=== PATIENT | female | born 1965 | race Caucasian/White ===

== ENCOUNTER → 2016-10-11 | Outpatient (CLI) | payer OTHER | LOC: CIMAGING 12:00 | PROVIDERS: ATTEND Internal Medicine | DX: R06.00 Dyspnea, unspecified (principal); Q67.6 Pectus excavatum | CPT/HCPCS: 71020-PO ==

== ENCOUNTER 2016-10-12 17:14 | Observation (INO) | payer OTHER ==
--- NOTE | 2016-10-12 17:23 | EDPHY ---
H & P Time Seen by Provider: 10/12/16 17:18 HPI/ROS: CHIEF COMPLAINT: Chest tightness HISTORY OF PRESENT ILLNESS: 51-year-old woman presents with worsening chest tightness over the last 3 weeks. She had a chest cold 4 weeks ago which is resolved. Over last 2 weeks she has had increasing frequency and severity of tightness in her chest and back which feels heavy. It does not radiate. It is associated with shortness of breath and being worse lying flat. Today she feels out of breath even going up 1 flight of stairs. Symptoms do not change with deep inspiration. No leg swelling. Currently she feels a little bit lightheaded and shaky but no actual syncope. REVIEW OF SYSTEMS: Eye: no change in vision ENT: no sore throat Cardiac: HPI Pulmonary: Currently no cough, no hemoptysis Abdomen: no vomiting, diarrhea, abdominal pain Musculoskeletal: no back pain or leg swelling Skin: no rash Neuro: mild migraine headache, no weak/numb in extremities. Constitutional: no fever : no urinary symptoms A comprehensive 10 point review of systems is otherwise negative aside from elements mentioned in the history of present illness. PAST MEDICAL HISTORY: Migraine headaches, negative for diabetes hypertension or hypercholesterolemia Social history: Negative for tobacco or cocaine, no recent travel or immobilization General Appearance: Alert and conversant, cooperative. Eyes: No scleral icterus. ENT, Mouth: Normal mucous membranes. Respiratory: Normal respiratory effort, breath sounds equal, lungs are clear to auscultation. Cardiovascular: Regular rate and rhythm. Gastrointestinal: Abdomen is soft and non tender. Neurological: Alert and oriented x3. Normally conversant. Face symmetric, normal movement and sensation in all extremities. Skin: Warm and dry, no rashes. Musculoskeletal: No peripheral edema and no joint swelling. No calf tenderness. Psychiatric: Not agitated. Emergency Department course/MDM: Lab reviewed from yesterday 10/11/2016, D-dimer 0.35 at 4:42 p.m. chest x-ray performed at 12:16 p.m. was read as negative. However with worsening chest tightness and increasing dyspnea on exertion concern exists for acute coronary syndrome or cardiomyopathy. Plan to check troponin here and BNP, plan to transfer to [facility] for cardiac risk stratification and probable echocardiography. Reason for transfer, inpatient cardiac evaluation not available here at [facility] discussed with the patient and consented. 1845: Patient had chest pain with rapid narrow complex tachycardia to 150-160 on monitor, which resolved prior to EKG being performed. Possibly SVT. Can't tell for sure whether not it was atrial fibrillation or flutter. Plan for ALS transport at this time to [facility]. 1899: Troponin negative. Constitutional: Initial Vital Signs Temperature (C) 36.6 C 10/12/16 17:21 Heart Rate 94 10/12/16 17:21 Respiratory Rate 18 10/12/16 17:21 Blood Pressure 173/156 H 10/12/16 17:21 O2 Sat (%) 97 10/12/16 17:21 O2 Delivery Mode Room Air Allergies/Adverse Reactions: No Known Allergies Allergy (Unverified 10/12/16 17:21) Home Medications: Medication Instructions Recorded Synthroid 10/12/16 Medical Decision Making - Diagnostics EKG Interpretation: 12-lead EKG interpreted by me; official reading is in trace master. My interpretation is sinus rhythm late anterior RS transition, no acute ischemic changes. 2nd EK-lead EKG interpreted by me; official reading is in trace master. My interpretation is sinus rhythm, tachycardic, no ischemic changes. Differential Diagnosis: Differential diagnosis considered for chest pain including but not limited to myocardial ischemia, aortic dissection, pericarditis, pulmonary embolus, chest wall pain, pleural inflammation and pulmonary infectious causes. Consult/Admit Bed Type: [place] [id number] - Data Points Laboratory Results: Laboratory Results 10/12/16 17:45 10/12/16 17:45 10/12/16 10/12/16 17:45 17:45 WBC 7.28 10^3/uL 10^3/uL (3.80-9.50) RBC 4.75 10^6/uL 10^6/uL (4.18-5.33) Hgb 14.7 g/dL g/dL (12.6-16.3) Hct 43.0 % % (38.0-47.0) MCV 90.5 fL fL (81.5-99.8) MCH 30.9 pg pg (27.9-34.1) MCHC 34.2 g/dL g/dL (32.4-36.7) RDW 12.5 % % (11.5-15.2) Plt Count 313 10^3/uL 10^3/uL (150-400) MPV 8.7 fL fL (8.7-11.7) Neut % (Auto) 59.5 % % (39.3-74.2) Lymph % (Auto) 33.4 % % (15.0-45.0) [place] % (Auto) 6.0 % % (4.5-13.0) Eos % (Auto) 0.7 % % (0.6-7.6) Baso % (Auto) 0.3 % % (0.3-1.7) Nucleat RBC Rel Count 0.0 % % (0.0-0.2) Absolute Neuts (auto) 4.33 10^3/uL 10^3/uL (1.70-6.50) Absolute Lymphs (auto) 2.43 10^3/uL 10^3/uL (1.00-3.00) Absolute Monos (auto) 0.44 10^3/uL 10^3/uL (0.30-0.80) Absolute Eos (auto) 0.05 10^3/uL 10^3/uL (0.03-0.40) Absolute Basos (auto) 0.02 10^3/uL 10^3/uL (0.02-0.10) Absolute Nucleated RBC 0.00 10^3/uL 10^3/uL (0-0.01) Immature Gran % 0.1 % % (0.0-1.1) Immature Gran # 0.01 10^3/uL 10^3/uL (0.00-0.10) Sodium TNP Potassium TNP Chloride TNP Carbon Dioxide TNP Anion Gap TNP BUN TNP Creatinine TNP Estimated GFR TNP Glucose TNP Calcium TNP Troponin I REJ NT-Pro-B Natriuret Pep TNP Medications Given: Discontinued Medications Aspirin (Aspirin) 325 mg PO EDNOW ONE Stop: 10/12/16 17:56 Last Admin: 10/12/16 17:56 Dose: 325 mg Departure - Departure Disposition: [facility] Acute Clinical Impression: Narrow complex tachycardia Chest pain Qualifiers: Chest pain type: unspecified Qualified Code(s): R07.9 - Chest pain, unspecified Condition: Good
--- NOTE | 2016-10-12 17:25 | CPEKG ---
Heart Rate: 84 RR Interval: 714 P-R Interval: 152 QRSD Interval: 78 QT Interval: 356 QTC Interval: 421 P [place]: 30 QRS [place]: 38 T Wave [place]: 22 EKG Severity - BORDERLINE ECG - EKG Impression: SINUS RHYTHM EKG Impression: BORDERLINE R WAVE PROGRESSION, ANTERIOR LEADS Electronically Signed By: Siddharth Araujo 12-Oct-2016 17:43:54
[2016-10-12] MEDS ORDERED: ASPIRIN EC 325 MG TAB PO ONE (17:49)
[2016-10-12 17:54] LABS: % IMMATURE GRANULYOCYTES 0.1 % (0.0-1.1); ABSOLUTE IMMATURE GRANULOCYTES 0.01 10^3/uL (0.00-0.10); ADD DIFF? NO; ADD MORPH? NO; ADD SCAN? NO; ATYPICAL LYMPHOCYTE FLAG 0 (0-99); FRAGMENT RBC FLAG 0 (0-99); HEMOGLOBIN 14.7 g/dL (12.6-16.3); LEFT SHIFT FLG 0 (0-99); LIPEMIA HEMOLYSIS FLAG 90 (0-99); MEAN CELL HEMOGLOBIN 30.9 pg (27.9-34.1); MEAN CELL HEMOGLOBIN CONCENTR. 34.2 g/dL (32.4-36.7); MEAN CELL VOLUME 90.5 fL (81.5-99.8); MEAN PLATELET VOLUME 8.7 fL (8.7-11.7); PLATELET CLUMPS FLAG 50 (0-99); PLATELET COUNT 313 10^3/uL (150-400); RED BLOOD CELL COUNT 4.75 10^6/uL (4.18-5.33); RED CELL DISTRIBUTION WIDTH 12.5 % (11.5-15.2)
[2016-10-12] MEDS ORDERED: ASPIRIN 325 MG TAB PO ONE (17:55)
[2016-10-12 18:37] LABS: ANION GAP 13 mEq/L (8-16); CALCIUM 8.9 mg/dL (8.5-10.4); CARBON DIOXIDE 22 mEq/l (22-31); CHLORIDE 104 mEq/L (97-110); CREATININE 0.6 mg/dL (0.6-1.0); GLOMERULAR FILTRATION RATE > 60; GLUCOSE 95 mg/dL (70-100); POTASSIUM 3.8 mEq/L (3.5-5.2); SODIUM 139 mEq/L (134-144)
--- NOTE | 2016-10-12 18:50 | CPEKG ---
Heart Rate: 100 RR Interval: 600 P-R Interval: 156 QRSD Interval: 80 QT Interval: 336 QTC Interval: 434 P [place]: 53 QRS [place]: 53 T Wave [place]: 9 EKG Severity - BORDERLINE ECG - EKG Impression: SINUS TACHYCARDIA EKG Impression: BORDERLINE R WAVE PROGRESSION, ANTERIOR LEADS EKG Impression: BORDERLINE T ABNORMALITIES, ANTERIOR LEADS Electronically Signed By: Siddharth Araujo 12-Oct-2016 18:53:19
[2016-10-12 18:57] LABS: TROPONIN I < 0.012 ng/mL (0-0.034)
[2016-10-12] MEDS ORDERED: ONDANSETRON 4 MG/2 ML VIAL ONE (21:49)
[2016-10-12] MEDS ORDERED: ONDANSETRON 4 MG/2 ML VIAL IVP PRN (21:50)
[2016-10-12] MEDS: NITROGLYCERIN 0.4 MG BTL SL PRN ×2 (21:54→22:10)
--- NOTE | 2016-10-12 22:10 | CPEKG ---
Heart Rate: 77 RR Interval: 779 P-R Interval: 160 QRSD Interval: 80 QT Interval: 392 QTC Interval: 444 P [place]: 45 QRS [place]: 47 T Wave [place]: 27 EKG Severity - BORDERLINE ECG - EKG Impression: SINUS RHYTHM EKG Impression: BORDERLINE R WAVE PROGRESSION, ANTERIOR LEADS Electronically Signed By: Siddharth Araujo 12-Oct-2016 22:34:41
[2016-10-12] MEDS ORDERED: KETOROLAC 30 MG/1 ML SDV IVP ONE (22:27)
[2016-10-12] MEDS ORDERED: oxyCODONE IR 5 MG TAB PO PRN (22:31)
[2016-10-12] MEDS ORDERED: ACETAMINOPHEN 500 MG TAB PO PRN (22:31)
[2016-10-12] MEDS ORDERED: ALBUTEROL 3 ML DEYVIAL IH PRN (22:31)
--- NOTE | 2016-10-12 22:36 | PDGENHP ---
History and Physical - Chief Complaint chest pain - History of Present Illness patient is a 51-year-old female with history of hypothyroidism (due to previous thyroidectomy) who presented to the [facility] with complaint chest pain/tightness. Patient reports about 4 weeks ago she suffered from what she felt to be a viral upper respiratory infection, with nasal congestion, sneezing, cough and some subjective fevers. As her acute cold symptoms improved over week, she noticed that she was developing a tightness across her chest. by about 2 weeks ago, her cold symptoms had completely resolved but her chest tightness persisted. She describes it as pain when attempting to take a deep breath, resulting in sensation of dyspnea. She denies any associated palpitations, nausea or diaphoresis. She was evaluated by her PMD on 10/11, at which time blood work, chest x-ray and EKG were obtained. She was told all of the studies were unremarkable, was prescribed an albuterol inhaler for p.r.n. use. Today, her symptoms continued to progress and she felt dyspnea with minimal exertion, so she decided to go to the [facility] for further evaluation. On arrival to the [facility], patient was afebrile hemodynamically stable. She did have an episode of transient narrow complex tachycardia while being evaluated in the [facility] (HR to 150 range, resolved spontaneously have 2-3 minutes). Initial labs, including CBC, BMP and troponin, were unremarkable. D-dimer was also negative. EKG did not reveal any obvious ischemic changes and chest x-ray ( from 10/11 PMD visit) was also noted to be unremarkable. She was given a full dose aspirin and transferred to [facility] for admission. History Information - Allergies/Home Medication List Allergies/Adverse Reactions: No Known Allergies Allergy (Unverified 10/12/16 17:21) Home Medications: ELETRIPTAN HYDROBROMIDE [RELPAX] 40 mg PO DAILY PRN 10/12/16 [Last Taken Unknown ] Thyroid,Pork [Nature-Throid] 113.75 mg PO DAILY 10/12/16 [Last Taken 10/12/16] I have personally reviewed and updated: family history, medical history, social history, surgical history - Past Medical History Additional medical history: hypothyroidism due to thyroid resection - Surgical History Additional surgical history: thyroidectomy. hysterectomy - Family History Additional family history: HTN in both parents - Social History Smoking Status: Never smoked Alcohol Use: Occasionally Drug Use: None Additional social history: Patient lives with , does not work, is independent in ADLs Review of Systems ROS: 10pt was reviewed & negative except for what was stated in HPI & below Physical Exam Temp Pulse Resp BP Pulse Ox 37.0 C 77 16 164/96 H 98 10/12/16 20:45 10/12/16 20:45 10/12/16 20:45 10/12/16 20:45 10/12/16 20:45 O2 (L/minute) 2 Constitutional: no apparent distress, appears nourished, not in pain Eyes: PERRL, anicteric sclera, EOMI Ears, Nose, Mouth, Throat: moist mucous membranes, hearing normal, ears appear normal, no oral mucosal ulcers Cardiovascular: regular rate and rhythym, no murmur, rub, or gallop, pulses symmetric bilaterally, No JVD, No edema Peripheral Pulses: 2+: dorsalis-pedis (R), dorsalis-pedis (L) Respiratory: no respiratory distress, no rales or rhonchi, clear to auscultation Gastrointestinal: normoactive bowel sounds, soft, non-tender abdomen, no palpable masses, No guarding, No rebound Genitourinary: no bladder fullness, no bladder tenderness Skin: warm, normal color, no rashes or abrasions, no fluctuance, no induration, No mottled Musculoskeletal: full muscle strength, no muscle tenderness, normal joint ROM, no joint effusions Neurologic: AAOx3, sensation intact bilaterally, CN II-XII Intact, No weakness, No numbness, No facial droop Psychiatric: interacting appropriately, not anxious, not encephalopathic, thought process linear Lab Data & Imaging Review 10/12/16 17:45 10/12/16 18:21 WBC 7.28 10^3/uL (3.80-9.50) 10/12/16 17:45 RBC 4.75 10^6/uL (4.18-5.33) 10/12/16 17:45 Hgb 14.7 g/dL (12.6-16.3) 10/12/16 17:45 Hct 43.0 % (38.0-47.0) 10/12/16 17:45 MCV 90.5 fL (81.5-99.8) 10/12/16 17:45 MCH 30.9 pg (27.9-34.1) 10/12/16 17:45 MCHC 34.2 g/dL (32.4-36.7) 10/12/16 17:45 RDW 12.5 % (11.5-15.2) 10/12/16 17:45 Plt Count 313 10^3/uL (150-400) 10/12/16 17:45 MPV 8.7 fL (8.7-11.7) 10/12/16 17:45 Neut % (Auto) 59.5 % (39.3-74.2) 10/12/16 17:45 Lymph % (Auto) 33.4 % (15.0-45.0) 10/12/16 17:45 [place] % (Auto) 6.0 % (4.5-13.0) 10/12/16 17:45 Eos % (Auto) 0.7 % (0.6-7.6) 10/12/16 17:45 Baso % (Auto) 0.3 % (0.3-1.7) 10/12/16 17:45 Nucleat RBC Rel Count 0.0 % (0.0-0.2) 10/12/16 17:45 Absolute Neuts (auto) 4.33 10^3/uL (1.70-6.50) 10/12/16 17:45 Absolute Lymphs (auto) 2.43 10^3/uL (1.00-3.00) 10/12/16 17:45 Absolute Monos (auto) 0.44 10^3/uL (0.30-0.80) 10/12/16 17:45 Absolute Eos (auto) 0.05 10^3/uL (0.03-0.40) 10/12/16 17:45 Absolute Basos (auto) 0.02 10^3/uL (0.02-0.10) 10/12/16 17:45 Absolute Nucleated RBC 0.00 10^3/uL (0-0.01) 10/12/16 17:45 Immature Gran % 0.1 % (0.0-1.1) 10/12/16 17:45 Immature Gran # 0.01 10^3/uL (0.00-0.10) 10/12/16 17:45 D-Dimer 0.34 ug/mLFEU (0.00-0.50) 10/12/16 21:25 Sodium 139 mEq/L (134-144) 10/12/16 18:21 Potassium 3.8 mEq/L (3.5-5.2) 10/12/16 18:21 Chloride 104 mEq/L (97-110) 10/12/16 18:21 Carbon Dioxide 22 mEq/l (22-31) 10/12/16 18:21 Anion Gap 13 mEq/L (8-16) 10/12/16 18:21 BUN 10 mg/dL (7-23) 10/12/16 18:21 Creatinine 0.6 mg/dL (0.6-1.0) 10/12/16 18:21 Estimated GFR > 60 10/12/16 18:21 Glucose 95 mg/dL (70-100) 10/12/16 18:21 Calcium 8.9 mg/dL (8.5-10.4) 10/12/16 18:21 Troponin I < 0.012 ng/mL (0-0.034) 10/12/16 21:25 NT-Pro-B Natriuret Pep 41 pg/mL (0-125) 10/12/16 18:21 TSH 0.062 uIU/mL (0.465-4.680) L 10/12/16 18:20 Visualized and Interpreted Chest x-ray results: Yes Chest X-Ray results: no infiltrate (from 10/11/2016), normal Visualized and Interpreted EKG results: Yes EKG Interpretation: Positive for: normal sinsus rhythm (no obvious st/t wave changes; poor R wave progression) Assessment & Plan Assessment: Patient is a 51 year old female with hypothyroidism who presents to the ED with complaint of pleuritic chest tightness, associated with dyspnea. [facility] evaluation was significant for a brief episode of tachycardia associated with her symptoms, but initial EKG and labs were largely unremarkable. Plan: # chest tightness Patient's description of her symptoms sound consistent with a pleuritic-type chest pain; pleurisy vs pericarditis. History of preceding viral syndrome further supports this. EKG does not show any evidence of ischemia or pericarditis and initial troponin is negative. There is also a report of a transient SVT while in [facility]. There has not been any recurrence of this since arrival to [facility], but arrhythmia may also be contributing to her symptoms. D- dimer is negative, so PE is unlikely. - give trial of Toradol, if improvement in symptoms, continue q6h prn - monitor serial EKGs, troponins - check TTE, consider NM stress if above w/u is negative # history of hypothyroidism, low TSH Patient on thyroid replacement therapy due to previous total thyroidectomy. TSH was checked in [facility] and is noted to be low; iatrogenic hyperthyroid state may be contributing to her above symptoms. Consider lowering thyroid replacement therapy and will check free T3/T4. # dispo: admit to observation for chest pain evaluation #gen: NPO DVT ppx: low risk, if inpatient > 2 nights start lovenox Full code
[2016-10-13 05:11] LABS: APTT 27.9 SEC (23.0-38.0); INR 1.03 (0.83-1.16); PROTIME(PATIENT) 13.4 SEC (12.0-15.0)
[2016-10-13 05:12] LABS: % IMMATURE GRANULYOCYTES 0.2 % (0.0-1.1); ABSOLUTE IMMATURE GRANULOCYTES 0.01 10^3/uL (0.00-0.10); ADD DIFF? NO; ADD MORPH? NO; ADD SCAN? NO; ATYPICAL LYMPHOCYTE FLAG 40 (0-99); FRAGMENT RBC FLAG 0 (0-99); HEMATOCRIT 38.1 % (38.0-47.0); HEMOGLOBIN 12.6 g/dL (12.6-16.3); LEFT SHIFT FLG 0 (0-99); LIPEMIA HEMOLYSIS FLAG 80 (0-99); MEAN CELL HEMOGLOBIN 30.4 pg (27.9-34.1); MEAN CELL HEMOGLOBIN CONCENTR. 33.1 g/dL (32.4-36.7); MEAN PLATELET VOLUME 8.6 fL (8.7-11.7); PLATELET CLUMPS FLAG 0 (0-99); PLATELET COUNT 255 10^3/uL (150-400); RED BLOOD CELL COUNT 4.14 10^6/uL (4.18-5.33); RED CELL DISTRIBUTION WIDTH 12.5 % (11.5-15.2)
[2016-10-13 05:21] LABS: ANION GAP 5 mEq/L (8-16); CALCIUM 8.8 mg/dL (8.5-10.4); CARBON DIOXIDE 23 mEq/l (22-31); CHLORIDE 111 mEq/L (97-110); CREATININE 0.6 mg/dL (0.6-1.0); GLOMERULAR FILTRATION RATE > 60; GLUCOSE 91 mg/dL (70-100); POTASSIUM 4.4 mEq/L (3.5-5.2); SODIUM 139 mEq/L (134-144)
[2016-10-13 05:29] LABS: CREATINE KINASE-MB FRACTION 0.26 ng/mL (0-3.19); TROPONIN I < 0.012 ng/mL (0-0.034)
[2016-10-13] MEDS: KETOROLAC 15 MG/1 ML SDV IVP SCH ×2 (07:15→13:14)
[2016-10-13] MEDS ORDERED: METOPROLOL TARTRATE 5 MG/5 ML INJ IVP ONE (10:15)
--- NOTE | 2016-10-13 13:06 | ECHO ---
[id number] + + [address] : : [place] [address] : : [phone] + + Adult Echocardiographic Report + ------+ :Name: JANIS GARCIA KStudy Date: 10/13/2016 11:40 AM : : Hospital Admission Number: [id number] Locatio n: 220: :: 1965 Gender: Female Height: 64 in : :Age: 51 yrs Race: WH Weight: 163 lb : :Reason For Study: Pleuritic type chest pain : : BSA: 1.8 meters 2 : + ------+ MMode/2D Measurements \T\ Calculations IVSd: 1.0 cm LVIDd: 3.9 cm FS: 35.2 % Ao root diam: LVPWd: 0.85 cm LVIDs: 2.5 cm EDV(Teich): 3.4 cm 65.4 ml LA dimension: ESV(Teich): 3.4 cm 22.8 ml EF(Teich): 65.2 % LVLd ap4: 8.7 cm SV(MOD-sp4): EDV(MOD-sp4): 48.0 ml 66.0 ml LVLs ap4: 6.6 cm ESV(MOD-sp4): 18.0 ml EF(MOD-sp4): 72.7 % Normal Measurement Values: + + :LVIDd (3.5-5.7cm) IVSd (0.6-1.1cm) LVPWd (0.6-1.1cm) Aortic Root (2.0-3.7cm)Left Atrium (1.5-4.0cm): :LV Vol(d) (76-115ml) LV Vol(s) (29-48ml) Ejec Fraction (50-65%)PV Ry (0.6- 1.2m/s) TV Ry (0.4-1.0m/s) : :MV E Ry (0.8-1.0m/s)MV A Ry (0.3-1.0m/s)LVOT Ry (0.7-1.2m/s) Asc Ao Ry ( 0.9-1.8m/s) : + + Doppler Measurements \T\ Calculations MV E max yr: 79.5 cm/sec Ao V2 max: 139.8 cm/sec MV A max ry: 69.1 cm/sec Ao max P.8 mmHg MV E/A: 1.1 Left Ventricle The left ventricle is normal in size and function. There is normal left ventricular wall thickness. Left ventricular systolic function is normal. Ejection Fraction = 60-65%. No regional wall motion abnormalities noted. Right Ventricle The right ventricle is normal in size and function. Atria The left atrial size is normal. Right atrial size is normal. Mitral Valve The mitral valve is normal in structure and function. There is no evidence of mitral valve prolapse. There is no mitral valve stenosis. There is trace mitral regurgitation. Tricuspid Valve Normal tricuspid valve. Aortic Valve The aortic valve is trileaflet. The aortic valve opens well. There is no aortic stenosis. There is no aortic insufficiency. Pulmonic Valve The pulmonic valve is normal in structure and function. trace to mild pulmonic valvular regurgitation. Great Vessels The aortic root is normal size. Pericardium/Pleural There is no pericardial effusion. Conclusion A complete two-dimensional transthoracic echocardiogram was performed (2D, M-mode, Doppler and color flow Doppler). 1. The left ventricle is normal in size and function. The Ejection Fraction = 60-65%. 2. The mitral valve is normal in structure and function. There is trace mitral regurgitation. 3. The aortic valve is trileaflet. There is no aortic stenosis. There is no aortic insufficiency. 4. The pulmonary artery pressure could not be adequately estimated. 5. No old studies for comparison. Final Reading Physician: Eb Garza MD electronically signed on 10/13/2016 01:05 PM Ordering Physician: Britta Ahuja Performed By: Kavya Rayo, [facility]
[2016-10-13 13:14] VITALS: RESP 16
[2016-10-13] MEDS ORDERED: IOPAMIDOL (ISOVUE 370) 100 ML BTL IV ONE (14:49)
[2016-10-13] MEDS ORDERED: KETOROLAC 15 MG/1 ML SDV IVP ONE (15:53)
[2016-10-13 16:22] VITALS: BP 152/94; PULSE 71; TEMP 98.2; O2SAT 95
--- NOTE | 2016-10-13 18:35 | PDDCSUM ---
Discharge Summary Discharge Summary: DISCHARGE DIAGNOSES: -Chest pain, suspected costochondritis after recent viral respiratory infection -Ruled out for myocardial infarction -Unemarkable Echocardiogram and CT angio Chest PROCEDURES: echocardiogram CT angio of chest HOSPITAL COURSE SUMMARY: This patient presented with 2+ weeks of continuous chest discomfort located in the upper central chest and interscapular area. It waxed and waned somewhat but was alway present. It started with a syndrome typical of viral upper respiratory infection which has otherwise resolved. She ruled out for SD, and CAD is not suspected given the overall nature of the syndrome. Echo and CT angio chest were normal. There is no arrythmia. She was treated with NSAID and had mild improvement in pain overnight. She is felt stable for DC to home. PENDING TEST RESULTS: none MEDICATION CHANGES: additon of advil or naprosyn as needed FOLLOW-UP PLAN: with staff assistant next week Greater than 35 minutes bedside and care coordination time today
== END 2016-10-13 19:45 | disposition home or self-care (01) ==
LOC: CED 17:14 → CEDHOLD 17:50 → F2W 20:37
PROVIDERS: ADMIT Internal Medicine; ATTEND Internal Medicine
DX: R07.9 Chest pain, unspecified (principal); E03.8 Other specified hypothyroidism
CPT/HCPCS: 71275; 93005; 93306; 99285; G0378; 80048-PO; 83880-PO; 84443-PO; 84481-90; 84484-PO; 85025-PO; J1885; J2405; Q9967

== ENCOUNTER 2016-10-16 11:32 | Emergency (ER) | payer OTHER ==
--- NOTE | 2016-10-16 11:57 | CPEKG ---
Heart Rate: 92 RR Interval: 652 P-R Interval: 140 QRSD Interval: 86 QT Interval: 360 QTC Interval: 446 P [place]: 61 QRS [place]: 49 T Wave [place]: 23 EKG Severity - BORDERLINE ECG - EKG Impression: SINUS RHYTHM EKG Impression: BORDERLINE R WAVE PROGRESSION, ANTERIOR LEADS Electronically Signed By: Eb Aldana 20-Oct-2016 12:19:06
[2016-10-16] MEDS ORDERED: HYOSCYAMINE SULFATE 0.125 MG TAB PO ONE (12:44)
[2016-10-16] MEDS ORDERED: LIDOCAINE 2% VISCOUS 15 ML UDCUP PO ONE (12:44)
[2016-10-16] MEDS ORDERED: NS 1,000 ML IV ONE (12:44)
[2016-10-16] MEDS ORDERED: MAG HYDROX/AL HYDROX/SIMETH 30 ML UDCUP PO ONE (12:44)
[2016-10-16] MEDS ORDERED: KETOROLAC 15 MG/1 ML SDV IVP ONE (12:45)
[2016-10-16 12:50] LABS: % IMMATURE GRANULYOCYTES 0.3 % (0.0-1.1); ABSOLUTE IMMATURE GRANULOCYTES 0.02 10^3/uL (0.00-0.10); ADD DIFF? NO; ADD MORPH? NO; ADD SCAN? NO; ATYPICAL LYMPHOCYTE FLAG 20 (0-99); FRAGMENT RBC FLAG 0 (0-99); HEMATOCRIT 44.6 % (38.0-47.0); HEMOGLOBIN 15.5 g/dL (12.6-16.3); LEFT SHIFT FLG 0 (0-99); LIPEMIA HEMOLYSIS FLAG 90 (0-99); MEAN CELL HEMOGLOBIN 30.9 pg (27.9-34.1); MEAN CELL HEMOGLOBIN CONCENTR. 34.8 g/dL (32.4-36.7); MEAN CELL VOLUME 88.8 fL (81.5-99.8); MEAN PLATELET VOLUME 8.5 fL (8.7-11.7); PLATELET CLUMPS FLAG 0 (0-99); PLATELET COUNT 367 10^3/uL (150-400); RED BLOOD CELL COUNT 5.02 10^6/uL (4.18-5.33); RED CELL DISTRIBUTION WIDTH 12.2 % (11.5-15.2)
[2016-10-16 12:56] LABS: ANION GAP 17 mEq/L (8-16); CALCIUM 9.5 mg/dL (8.5-10.4); CARBON DIOXIDE 19 mEq/l (22-31); CHLORIDE 104 mEq/L (97-110); CREATININE 0.6 mg/dL (0.6-1.0); GLOMERULAR FILTRATION RATE > 60; GLUCOSE 96 mg/dL (70-100); POTASSIUM 4.3 mEq/L (3.5-5.2); SODIUM 140 mEq/L (134-144)
[2016-10-16] MEDS ORDERED: DEXAMETHASONE 10 MG/ML VIAL IVP ONE (12:59)
[2016-10-16 13:17] LABS: TROPONIN I < 0.012 ng/mL (0-0.034)
[2016-10-16 13:33] LABS: COLOR YELLOW; LEUKOCYTE ESTERASE,URINE NEGATIVE (NEGATIVE); NITRITE,URINE NEGATIVE (NEGATIVE)
[2016-10-16] MEDS ORDERED: LORazepam 2 MG/ML INJ IVP ONE (13:44)
[2016-10-16] MEDS ORDERED: NITROGLYCERIN 2% 1 GM PACKET TP ONE (13:44)
[2016-10-16] MEDS ORDERED: HYDROmorphONE/DILAUDID 1 MG/ML SYR IVP ONE (13:44)
[2016-10-16 13:49] LABS: BACTERIA 1+ /hpf (NONE SEEN); MUCUS 1+ /lpf (NONE-1+); YEAST OCCASIONAL /hpf (NONE SEEN)
[2016-10-16 13:50] LABS: WBC,URINE 0-1 /hpf (0-3)
[2016-10-16 14:00] LABS: ALBUMIN 4.2 g/dL (3.5-5.0); BILIRUBIN,TOTAL 0.7 mg/dL (0.1-1.4); BILIRUBIN-CONJUGATED 0.4 mg/dL (0.0-0.5); BILIRUBIN-UNCONJUGATED 0.3 mg/dL (0.0-1.1); TOTAL PROTEIN 8.1 g/dL (6.3-8.2)
--- NOTE | 2016-10-16 14:15 | EDPHY ---
H & P Stated Complaint: cp "feels like my body is going to explode". Time Seen by Provider: 10/16/16 11:44 HPI/ROS: CHIEF COMPLAINT: Pounding in my chest HISTORY OF PRESENT ILLNESS: This is a 51-year-old female who was admitted to the hospital on October 12 for chest pain. Patient's evaluation included serial troponins which were negative, EKGs remained nonischemic, echocardiogram demonstrated no pericardial effusion and a CT scan of the chest demonstrated no pulmonary embolism. At that time the patient related a history of viral syndrome with fever several weeks previously and the patient's symptom complex was most likely thought to be related to pleurisy versus pericarditis. Patient was discharged with instructions regarding regular doses of nonsteroidals. Her states she has been taking Aleve 220 mg 2 times a day with minimal improvement. Patient reports that she has been unable to care for her family, laying in bed, with chest discomfort described as an achy pain and feeling like her heart is pounding. She also reports ringing in her ears. She has developed some nausea which may be related to the Aleve. Last night she reports being unable to sleep secondary to the pounding sensation. Patient has had no fainting, or dizziness. On arrival to the emergency department the patient is quite upset, crying, noted to be hypertensive, noted to be hyperventilating and tachycardic. She reports her pain is 10/10. She intermittently complains of sharp stabbing low back pain, and intermittently relates pain in the inner aspect of her right arm as well as urinary discomfort. REVIEW OF SYSTEMS: Aside from elements discussed in the HPI, a comprehensive 10-point review of systems was reviewed and is negative. PAST MEDICAL HISTORY: Hypothyroidism. Patient takes a natural thyroid. SOCIAL HISTORY: . Nonsmoker. VITAL SIGNS Reviewed by me. GENERAL: Well-developed, well-nourished, crying, anxious, agitated, lying with her eyes closed. HEENT: Atraumatic. Eyes: No icterus, no injection. Mouth: moist mucous membranes. No erythema or lesions. Neck: supple with no adenopathy. LUNGS: Clear to auscultation bilaterally, no wheezes, rhonchi or rales. CARDIAC: Tachycardic rate. No rubs murmurs or gallops. ABDOMEN: Soft, nontender, nondistended, bowel sounds normal. BACK: No CVA tenderness. EXTREMITIES: No trauma. No edema. Range of motion is normal throughout. NEURO: Alert and oriented, grossly nonfocal. SKIN: Warm and dry, no rash. PSYCHIATRIC: Normal mentation, very upset. - Personal History LMP (Females 10-55): Unknown Current Tetanus/Diphtheria Vaccine: Yes Current Tetanus Diphtheria and Acellular Pertussis (TDAP): Yes - Medical/Surgical History Hx Asthma: No Hx Chronic Respiratory Disease: No Hx Diabetes: No Hx Cardiac Disease: No Hx Renal Disease: No Hx Cirrhosis: No Hx Alcoholism: No Hx HIV/AIDS: No Hx Splenectomy or Spleen Trauma: No Other PMH: thyroid/hyst, migraine headache - Social History Smoking Status: Never smoked Constitutional: Initial Vital Signs Temperature (C) 36.5 C 10/16/16 11:35 Heart Rate 110 H 10/16/16 11:35 Respiratory Rate 20 10/16/16 11:35 Blood Pressure 168/121 H 10/16/16 11:35 O2 Sat (%) 100 10/16/16 11:35 O2 Delivery Mode Room Air Allergies/Adverse Reactions: No Known Allergies Allergy (Verified 10/16/16 11:54) Home Medications: Medication Instructions Recorded ELETRIPTAN HYDROBROMIDE [RELPAX] 40 mg PO DAILY PRN 10/12/16 Thyroid,Pork [Nature-Throid] 113.75 mg PO DAILY 10/12/16 Naproxen Sodium [Aleve 220 MG (*)] 220 mg PO BID #1 tab 10/13/16 LORazepam [Ativan (*)] 0.5 - 1 mg PO HS PRN #10 tab 10/16/16 Metoprolol Tartrate [Lopressor 25 12.5 mg PO BID #30 tab 10/16/16 mg (*)] Medical Decision Making - Diagnostics EKG Interpretation: 12-LEAD EKG: Please see the full report in [facility]. My interpretation: Sinus rhythm, no ST elevations Imaging Results: Imaging Impressions Chest X-Ray 10/16/16 12:45 Impression: No acute findings in the chest. Imaging: I viewed and interpreted images myself ED Course/Re-evaluation: 51-year-old female presenting to the emergency department with ongoing chest pain since a evaluation and inpatient stay at the hospital several days ago. She reports that she continues to have an achy sensation and feels like her chest is going to explode. History was initially somewhat difficult this patient is quite upset, anxious, hyperventilating, and reporting multiple concerns stating "I just did not think my body could take it anymore" review into the pounding sensation in her chest. Patient's EKG remains nonischemic and I see no signs of pericarditis. Chest x- ray is normal with no signs of heart failure or pleural effusions. Troponin remains negative. BNP is normal. Your patient received Toradol IV as well as Decadron 10 mg IV. Bedside ultrasound was attempted to be performed, however, due to machine malfunction I am unable to evaluate the patient for pericardial effusion. Heart sounds are not muffled and the patient has no secondary signs of pericardial tamponade. Patient was re-evaluated on several occasions. She continues to be somewhat vague regarding her primary complaint. At 1 point she reports low back pain and feels like she has urinary tract infection. Of note, the patinet has remained hypertensive throughout her evaluation. She did receive Ativan, a small dose of Dilaudid, and nitropaste. Blood pressure responded the patient was much more comfortable. I had several long discussions with the patient and her . I explained the presumed cause of her achy chest discomfort as a musculoskeletal chest pain. We discussed that pounding sensation. We discussed normal EKGs and negative troponins. I offered them admission to the hospital. We discussed initiation of antihypertensive therapy. I do not believe the patient is suffering an acute myocardial infarction, I doubt coronary artery disease, pulmonary embolism pericardial effusion, pleural effusions. I doubt dissection in the face of a normal CT scan performed several days ago and no pre-existing history of hypertension. Patient and her feel comfortable being discharged on metoprolol to use for her elevated blood pressure which may also help control the anxiety and the pounding sensation. Patient was also given a prescription for Ativan to use if needed for insomnia. The understand reasons to return to the emergency department. They were given referral to Dr. Garza and they also state they will follow up with Dr. Howell. Differential Diagnosis: Differential diagnoses for the patient's symptom complex was considered including but not limited to anxiety, pleuritic chest pain, pericarditis, pleuritis, pleurisy, anxiety, thoracic aortic dissection, pulmonary embolism. - Data Points Laboratory Results: Laboratory Results 10/16/16 12:15 10/16/16 12:15 10/16/16 10/16/16 10/16/16 13:25 12:45 12:15 WBC RBC Hgb Hct MCV MCH MCHC RDW Plt Count MPV Neut % (Auto) Lymph % (Auto) Hall % (Auto) Eos % (Auto) Baso % (Auto) Nucleat RBC Rel Count Absolute Neuts (auto) Absolute Lymphs (auto) Absolute Monos (auto) Absolute Eos (auto) Absolute Basos (auto) Absolute Nucleated RBC Immature Gran % Immature Gran # Sodium Potassium Chloride Carbon Dioxide Anion Gap BUN Creatinine Estimated GFR Glucose Calcium Total Bilirubin 0.7 mg/dL mg/dL (0.1-1.4) Conjugated Bilirubin 0.4 mg/dL mg/dL (0.0-0.5) Unconjugated Bilirubin 0.3 mg/dL mg/dL (0.0-1.1) AST 28 IU/L IU/L (14-46) ALT 37 IU/L IU/L (9-52) Alkaline Phosphatase 111 IU/L IU/L (38-126) Troponin I NT-Pro-B Natriuret Pep Total Protein 8.1 g/dL g/dL (6.3-8.2) Albumin 4.2 g/dL g/dL (3.5-5.0) Lipase TSH 0.733 uIU/mL uIU/mL (0.465-4.680) Urine Color YELLOW Urine Appearance CLEAR Urine pH 7.0 (5.0-7.5) Ur Specific [place] <= 1.005 (1.002-1.030) Urine Protein NEGATIVE (NEGATIVE) Urine Ketones NEGATIVE (NEGATIVE) Urine Blood NEGATIVE (NEGATIVE) Urine Nitrate NEGATIVE (NEGATIVE) Urine Bilirubin NEGATIVE (NEGATIVE) Urine Urobilinogen 0.2 EU EU (0.2-1.0) Ur Leukocyte Esterase NEGATIVE (NEGATIVE) Urine RBC 1-3 /hpf /hpf (0-3) Urine WBC 0-1 /hpf /hpf (0-3) Ur Epithelial Cells 2+ /lpf H /lpf (NONE-1+) Urine Bacteria 1+ /hpf H /hpf (NONE SEEN) Urine Mucus 1+ /lpf /lpf (NONE-1+) Urine Yeast OCCASIONAL /hpf H /hpf (NONE SEEN) Urine Glucose NEGATIVE (NEGATIVE) 10/16/16 10/16/16 12:15 12:15 WBC 5.81 10^3/uL 10^3/uL (3.80-9.50) RBC 5.02 10^6/uL 10^6/uL (4.18-5.33) Hgb 15.5 g/dL g/dL (12.6-16.3) Hct 44.6 % % (38.0-47.0) MCV 88.8 fL fL (81.5-99.8) MCH 30.9 pg pg (27.9-34.1) MCHC 34.8 g/dL g/dL (32.4-36.7) RDW 12.2 % % (11.5-15.2) Plt Count 367 10^3/uL 10^3/uL (150-400) MPV 8.5 fL L fL (8.7-11.7) Neut % (Auto) 57.6 % % (39.3-74.2) Lymph % (Auto) 35.3 % % (15.0-45.0) Hall % (Auto) 5.9 % % (4.5-13.0) Eos % (Auto) 0.7 % % (0.6-7.6) Baso % (Auto) 0.2 % L % (0.3-1.7) Nucleat RBC Rel Count 0.0 % % (0.0-0.2) Absolute Neuts (auto) 3.35 10^3/uL 10^3/uL (1.70-6.50) Absolute Lymphs (auto) 2.05 10^3/uL 10^3/uL (1.00-3.00) Absolute Monos (auto) 0.34 10^3/uL 10^3/uL (0.30-0.80) Absolute Eos (auto) 0.04 10^3/uL 10^3/uL (0.03-0.40) Absolute Basos (auto) 0.01 10^3/uL L 10^3/uL (0.02-0.10) Absolute Nucleated RBC 0.00 10^3/uL 10^3/uL (0-0.01) Immature Gran % 0.3 % % (0.0-1.1) Immature Gran # 0.02 10^3/uL 10^3/uL (0.00-0.10) Sodium 140 mEq/L mEq/L (134-144) Potassium 4.3 mEq/L mEq/L (3.5-5.2) Chloride 104 mEq/L mEq/L (97-110) Carbon Dioxide 19 mEq/l L mEq/l (22-31) Anion Gap 17 mEq/L H mEq/L (8-16) BUN 9 mg/dL mg/dL (7-23) Creatinine 0.6 mg/dL mg/dL (0.6-1.0) Estimated GFR > 60 Glucose 96 mg/dL mg/dL (70-100) Calcium 9.5 mg/dL mg/dL (8.5-10.4) Total Bilirubin Conjugated Bilirubin Unconjugated Bilirubin AST ALT Alkaline Phosphatase Troponin I < 0.012 ng/mL ng/mL (0-0.034) NT-Pro-B Natriuret Pep 39 pg/mL pg/mL (0-125) Total Protein Albumin Lipase 92.0 IU/L IU/L (23-300) TSH Urine Color Urine Appearance Urine pH Ur Specific [place] Urine Protein Urine Ketones Urine Blood Urine Nitrate Urine Bilirubin Urine Urobilinogen Ur Leukocyte Esterase Urine RBC Urine WBC Ur Epithelial Cells Urine Bacteria Urine Mucus Urine Yeast Urine Glucose Medications Given: Discontinued Medications Al Hydroxide/Mg Hydroxide (Maalox Susp) 30 ml PO ONCE ONE Stop: 10/16/16 12:45 Last Admin: 10/16/16 13:00 Dose: 30 ml Dexamethasone (Decadron Injection) 10 mg IVP EDNOW ONE Stop: 10/16/16 13:00 Last Admin: 10/16/16 13:15 Dose: 10 mg Hydromorphone HCl (Dilaudid) 0.5 mg IVP EDNOW ONE Stop: 10/16/16 13:45 Last Admin: 10/16/16 14:00 Dose: 0.5 mg Hyoscyamine Sulfate (Levsin, Hyomax-Sl) 0.25 mg PO ONCE ONE Stop: 10/16/16 12:45 Last Admin: 10/16/16 12:59 Dose: 0.25 mg Sodium Chloride (Ns) 1,000 mls @ 0 mls/hr IV ONCE ONE PRN Reason: Wide Open Stop: 10/16/16 12:45 Last Admin: 10/16/16 13:00 Dose: 1,000 mls Ketorolac Tromethamine (Toradol) 15 mg IVP EDNOW ONE Stop: 10/16/16 12:46 Last Admin: 10/16/16 13:00 Dose: 15 mg Lidocaine (Lidocaine 2% Viscous) 15 ml PO ONCE ONE Stop: 10/16/16 12:45 Last Admin: 10/16/16 13:00 Dose: 15 ml Lorazepam (Ativan Injection) 1 mg IVP EDNOW ONE Stop: 10/16/16 13:45 Last Admin: 10/16/16 14:00 Dose: 1 mg Nitroglycerin (Nitro-Bid 2%) 1 inch TP EDNOW ONE Stop: 10/16/16 13:45 Last Admin: 10/16/16 14:00 Dose: 1 inch Departure - Departure Disposition: Home, Routine, Self-Care Clinical Impression: Chest pain Qualifiers: Chest pain type: unspecified Qualified Code(s): R07.9 - Chest pain, unspecified Hypertension Qualifiers: Hypertension type: essential hypertension Qualified Code(s): I10 - Essential ( primary) hypertension Condition: Good Instructions: Chest Pain (ED), Pleurisy (ED), Hypertension (ED) Additional Instructions: Please follow up without fail on Monday with your primary care physician, Dr. Howell. You have also been given referral to a marketer, Dr. Garza. I believe it is important to follow up with both services. Please begin taking the metoprolol to help control your high blood pressure and the pounding sensation. Dose is 12.5 mg 2 times a day. He also been given a prescription for Ativan to use if needed for difficulty sleeping or anxiety. Return to the emergency department or seek care urgently if you develop worsening chest pain, lightheadedness, fainting, palpitations, or other concerns. Continue to take Aleve as directed 2 times a day. Referrals: Bi Howell MD [Primary Care Provider] - As per Instructions Eb Garza MD [Medical Doctor] - As per Instructions Prescriptions: LORazepam [Ativan (*)] 0.5 - 1 mg PO HS PRN #10 tab PRN Reason: insomnia Metoprolol Tartrate [Lopressor 25 mg (*)] 12.5 mg PO BID #30 tab
[2016-10-16 14:25] VITALS: RESP 16; TEMP 97.9; O2SAT 95
[2016-10-16 15:30] VITALS: BP 153/90; PULSE 82
== END 2016-10-16 15:30 | disposition home or self-care (01) ==
LOC: CED 11:32
DX: R07.9 Chest pain, unspecified (principal); I10 Essential (primary) hypertension
CPT/HCPCS: 71020-PO; 80048-PO; 80076-PO; 81003-PO; 81015-PO; 83690-PO; 83880-PO; 84443-PO; 84484-PO; 85025-PO; 96374; J1170; J1885; J2060